=== PATIENT | female | born 1990 | race Caucasian/White ===

== ENCOUNTER → 2017-04-11 | Outpatient (CLI) | payer OTHER ==
--- NOTE | 2017-04-11 12:19 | US ---
EXAMINATION TYPE: US pelvis complete transvag DATE OF EXAM: 04/11/2017 COMPARISON: CLINICAL HISTORY: Pelvic Pain. Midline/right pelvic discomfort. Patient states having a hx of ovaria n cysts TECHNIQUE: Transvaginal (TV) Date of LMP: 04/03/2017, EXAM MEASUREMENTS: Uterus: 9.5 x 5.3 x 4.1 cm Endometrial Stripe: 0.6 cm Right Ovary: 3.3 x 2.2 x 2.2 cm Left Ovary: 3.1 x 1.7 x 2.1 cm 1. Uterus: Anteverted Appears heterogenous 2. Endometrium: wnl as visualized 3. Right Ovary: Simple cystic appearing lesion = 1.8 x 1.4 x 1.3 cm 4. Left Ovary: follicles seen Color doppler imaging shows good vascular flow within the ovaries; there is no evidence for ovarian torsion. 5. Bilateral Adnexa: wnl 6. Posterior cul-de-sac: no free fluid Cervix- nabothian cysts IMPRESSION: 1. Right ovarian cyst. Follow-up exam following the next normal menstrual period or 6 weeks is recomm ended. 2. No suspicious acute changes otherwise evident.
== END | disposition home or self-care (01) ==
LOC: RADUSWWP 11:02
PROVIDERS: ATTEND Obstetrics & Gynecology
DX: N83.201 Unspecified ovarian cyst, right side (principal)
CPT/HCPCS: 76830; 76856

== ENCOUNTER → 2017-08-06 | Outpatient (CLI) | payer OTHER ==
--- NOTE | 2017-08-07 08:08 | MR ---
EXAMINATION TYPE: MR darren/lskelsey wo/w con DATE OF EXAM: 08/06/2017 COMPARISON: Lumbar spine 05/04/2010 HISTORY: 27-year-old female thoracic spine and low back pain Technique: Multiplanar, multisequence images of the thoracic spine and lumbar spine were obtained 34 and after administration of 10 mL intravenous Gadavist contrast. FINDINGS: THORACIC SPINE: There is focal levoconvex curvature of the upper third thoracic spine best seen on the coronal series . Vertebral body heights are preserved and alignment is maintained No suspicious bone marrow replacement. There is mild intervertebral disc desiccation especially throughout the mid thoracic spine. Minimal t iny posterior disc bulges are present such as that T5-T6, T6-T7, and T7-T8. No large focal disc herni ation or significant spinal canal stenosis. Mild facet degenerative change particularly towards the right in the upper thoracic spine. This cause s variable mild narrowing of the right T2-T3, T3-T4 neuroforamen. No prevertebral or paravertebral soft tissue abnormality seen. Normal course, caliber, and signal intensity of the thoracic spinal cord. No abnormal enhancement within the spinal canal. LUMBAR SPINE: Vertebral body heights are preserved and alignment is maintained. Mild facet degenerative change lower lumbar spine. No large focal disc herniation. Very minimal bulging discs from L3 through S1 levels. Minimal early d isc desiccation at L5-S1 similar to prior exam. No spinal canal or neuroforaminal stenosis identified. No prevertebral or paravertebral soft tissue abnormality. No abnormal enhancement within the spinal canal. Conus medullaris is normal. No suspicious bone marrow replacement. COMBINED IMPRESSION: THORACIC SPINE: 1. Some very early intervertebral disc degenerative changes particularly in the mid thoracic spine. 2. Mild facet degenerative change upper thoracic spine towards the right mildly narrowing the T2-T3 a nd T3-T4 neuroforamen. 3. Focal levoconvex scoliotic curvature upper third thoracic spine. LUMBAR SPINE: 1. Mild facet degenerative change lower lumbar spine and minimal bulging discs from L3 through S1 lev els. Also, minimal early intervertebral disc desiccation at L5-S1. The mild bulging disks appear slig htly increased. 2. No focal disc herniation or spinal canal or neural foraminal stenosis.
== END | disposition home or self-care (01) ==
LOC: RADMRIMAIN 14:58
PROVIDERS: ATTEND Internal Medicine
DX: M99.72 Connective tissue and disc stenosis of intervertebral foramina of thoracic region (principal); M51.27 Other intervertebral disc displacement, lumbosacral region; M47.814 Spondylosis without myelopathy or radiculopathy, thoracic region; M47.817 Spondylosis without myelopathy or radiculopathy, lumbosacral region; M41.84 Other forms of scoliosis, thoracic region
CPT/HCPCS: 72157; 72158; A9581

== ENCOUNTER → 2018-12-24 | Outpatient (CLI) | payer OTHER ==
--- NOTE | 2018-12-24 12:57 | US ---
EXAMINATION TYPE: US transvaginal DATE OF EXAM: 12/24/2018 COMPARISON: NONE CLINICAL HISTORY: N92.0 MENORRHAGIA WITH REG. TECHNIQUE: Transvaginal (TV) Patient unable to fill bladder. Date of LMP: 12/02/18 EXAM MEASUREMENTS: Uterus: 9.1 x 4.1 x 4.8 cm Endometrial Stripe: 0.7 cm Right Ovary: 2.4 x 2.8 x 2.4 cm Left Ovary: 2.7 x 1.9 x 1.7 cm 1. Uterus: Anteverted wnl 2. Endometrium: wnl 3. Right Ovary: wnl 4. Left Ovary: wnl 5. Bilateral Adnexa: wnl 6. Posterior cul-de-sac: wnl IMPRESSION: Resolution of the previously seen right ovarian cyst. Ovaries and uterus appear unremarka ble on the current examination.
== END ==
LOC: RADUSWWP 12:03
PROVIDERS: ATTEND Obstetrics & Gynecology
DX: N92.0 Excessive and frequent menstruation with regular cycle (principal)
CPT/HCPCS: 76830

== ENCOUNTER → 2019-02-05 | Outpatient (CLI) | payer OTHER ==
[2019-02-05 12:36] LABS: Basophils # (A) 0.2 k/uL (0-0.2); Basophils % (A) 1 %; Eosinophils # (A) 0.4 k/uL (0-0.7); Eosinophils % (A) 4 %; HCT 44.3 % (34.0-46.0); HGB 15.3 gm/dL (11.4-16.0); Lymphocytes % (A) 25 %; MCH 29.2 pg (25.0-35.0); MCHC 34.6 g/dL (31.0-37.0); MCV 84.4 fL (80.0-100.0); Mean Platelet Volume 7.1; Monocytes # (A) 0.6 k/uL (0-1.0); Monocytes % (A) 5 %; Neutrophils # (A) 7.8 k/uL (1.3-7.7); Neutrophils % (A) 64 %; Platelet Count 247 k/uL (150-450); RBC 5.25 m/uL (3.80-5.40); RDW 12.4 % (11.5-15.5); WBC 12.2 k/uL (3.8-10.6)
== END | disposition home or self-care (01) ==
LOC: LABPAT 11:11
PROVIDERS: ATTEND Obstetrics & Gynecology
DX: Z01.812 Encounter for preprocedural laboratory examination (principal)
CPT/HCPCS: 36415; 85025

== ENCOUNTER 2019-02-06 06:16 | Day surgery (SDC) | payer OTHER ==
[2019-02-03 12:54] VITALS: BMI 36.6
[~2019-02-06 06:16] MED LIST: DEXAMETHASONE SOD PHOSPHATE 10 MG/ML 1 ML VIAL IV ONE; HYDROmorphone 0.5 MG/0.5 ML SYRINGE IVP PRN; LACTATED RINGERS 1,000 ML IV SCH; LIDOCAINE 1% 20 ML VIAL (10MG/ML) FOR IV START INTRADERMA PRN; MIDAZOLAM 2 MG/2 ML VIAL IV PRN; ONDANSETRON 4 MG/2 ML VIAL IVP ONE; Pre Op ABX Message 1 EACH MISC MISCELLANE ONE; SCOPOLAMINE 1.5MG/72HR PATCH TRANSDERM ONE
[2019-02-06] MEDS ORDERED: PROPOFOL 10 MG/ML 20 ML VIAL IV ONE (07:25)
[2019-02-06] MEDS ORDERED: MIDAZOLAM 2 MG/2 ML VIAL ONE (07:25)
[2019-02-06] MEDS ORDERED: LIDOCAINE 1% INJ 10MG/ML (20 ML MDV) ONE (07:25)
[2019-02-06] MEDS ORDERED: KETOROLAC 30 MG/ML 1 ML VIAL ONE (07:25)
[2019-02-06] MEDS ORDERED: fentaNYL (PF) 50 MCG/ML 2 ML AMP ONE (07:25)
--- NOTE | 2019-02-06 07:29 | P.HPOB ---
History of Present Illness H&P Date: 02/06/19 Chief Complaint: Heavy vaginal bleeding Patient is a 29-year-old female with very heavy vaginal bleeding. Symptoms and present for a number of months she's unable to function well with the amount of bleeding she's doing and what we discussed things like control or pro gestin IUDs she would like more permanent procedure she has had her tubes tied. She is scheduled for D&C with hysteroscopy NovaSure. Risks and benefits including potential for perforation and further surgery needed, leading, infection, pain or issues also with anesthesia have been reviewed and all questions were answered for her prior to proceeding to the operative room. Past Medical History Past Medical History: No Reported History Additional Past Medical History / Comment(s): PAINFUL, HEAVY MENSES. POSSIBLE MS-WAITING TO FINISH PROCESS History of Any Multi-Drug Resistant Organisms: None Reported Past Surgical History: Adenoidectomy, Appendectomy, Section, Ear Zakia derek, Tubal Ligation Past Anesthesia/Blood Transfusion Reactions: No Reported Reaction Smoking Status: Current every day smoker - Past Family History Mother Family Medical History: No Reported History Medications and Allergies Home Medications Medication Instructions Recorded Confirmed Type Melatonin 10 mg PO HS 02/03/19 02/06/19 History Allergies Allergy/AdvReac Type Severity Reaction Status Date / Time No Known Allergies Allergy Verified 02/06/19 06:43 Exam Osteopathic Statement: *. No significant issues noted on an osteopathic structural exam other than those noted in the History and Physical/Consult. Vital Signs Temp Pulse Resp BP Pulse Ox 02/06/19 06:37 99.3 F 102 H 16 122/67 98 - OBG Physical Exam Breast: both: normal (no masses) Abdomen: bowel sounds normal, no diffuse tenderness, no bruit present, no guarding noted, no hepatomegaly, no splenomegaly, no mass Vulva: both: normal Vagina: normal moisture, no discharge Cervix: no lesion, no discharge Uterus: normal size, normal contour Adnexa: both: normal Anus/Rectum: normal perianal skin, no rectal mass, no hemorrhoids, heme negative
--- NOTE | 2019-02-06 08:10 | P.OP ---
Date of Procedure: 02/06/19 Preoperative Diagnosis: Menorrhagia Postoperative Diagnosis: Same Procedure(s) Performed: D&C with hysteroscopy and NovaSure Anesthesia: FELIX Surgeon: Lauri Pfeiffer Estimated Blood Loss (ml): 3 IV fluids (ml): 100 Pathology: other (Uterine and endocervical curettings) Condition: stable Disposition: same day Operative Findings: Proliferative endometrium Description of Procedure: Patient was taken to the operating suite where a general anesthetic was found be adequate. She was prepped and draped in normal sterile fashion and placed in the dorsal lithotomy position. Initially the cervix was dilated and sounded to 9 cm. Endocervical curettings with Kevorkian curet were then obtained and placed on Telfa. Once this was accomplished camera was inserted with proliferative endometrium noted on hysteroscopy camera was removed and sharp curettings of the endometrium were obtained. All tissues collected placed on Telfa and sent to pathology. Once this was accomplished NovaSure system was inserted with length of 5 and a width of 3.5 it was tested and enabled once it passed its patency test. It was then activated and the burn lasted 99 seconds. At conclusion of the burn the NovaSure system was removed and camera was reinserted with good burn noted. All incidents were then removed. Sponge, lap, needle counts were all correct 2. Patient was then taken to the recovery room in stable and satisfactory condition. Plan - Discharge Summary Discharge Rx Participant: No New Discharge Prescriptions: New Ibuprofen [Motrin] 600 mg PO Q6HR PRN #30 tab PRN Reason: Pain No Action Melatonin 10 mg PO HS Discharge Medication List Melatonin 10 mg PO HS 02/03/19 [History] Ibuprofen [Motrin] 600 mg PO Q6HR PRN #30 tab 02/06/19 [Rx] Follow up Appointment(s)/Referral(s): Lauri Pfeiffer DO [Doctor of Osteopathic Medicine] - 2 Weeks Activity/Diet/Wound Care/Special Instructions: No heavy lifting, limit stairs and driving, and pelvic rest. If any high temperatures, heavy bleeding, or severe pain call my office. No tub bath for 1- 2 weeks. Discharge Disposition: HOME SELF-CARE
[2019-02-06] MEDS: MEPERIDINE 50 MG/ML SYRINGE IVP ONE ×4 (08:12→08:35)
[2019-02-06 08:18] VITALS: TEMP 98
[2019-02-06] MEDS: fentaNYL (PF) 50 MCG/ML 2 ML AMP IVP ONE ×2 (08:51→08:57)
[2019-02-06 09:07] VITALS: RESP 18
[2019-02-06] MEDS ORDERED: diphenhydrAMINE 50 MG/ML 1 ML VIAL IVP ONE (09:23)
[2019-02-06 09:32] VITALS: BP 144/92; PULSE 73
== END 2019-02-06 10:07 | disposition home or self-care (01) ==
LOC: OR 06:16
PROVIDERS: ATTEND Obstetrics & Gynecology
DX: N84.0 Polyp of corpus uteri (principal); N72 Inflammatory disease of cervix uteri; F17.210 Nicotine dependence, cigarettes, uncomplicated; Z98.51 Tubal ligation status
CPT/HCPCS: 81025; 88305; 58563; J2250; J1200; J1100; J2175; J2405; J2001; J3010; J1885; J2704